=== PATIENT | female | born 1960 | race Caucasian/White ===

== ENCOUNTER → 2019-07-17 | Outpatient (CLI) | payer BC ==
[~2019-07-17] MED LIST: CYCL10 MT; ESTR.625; HYDACE7.5; HYDR1TAB94 PO; MERIDIA; ONDA4ODT MM; OXYACE5T PO
== END | disposition home or self-care (01) ==
LOC: PLD 13:51 → LAB SHORT 13:51
DX: D22.5 Melanocytic nevi of trunk (principal); L57.0 Actinic keratosis
CPT/HCPCS: 88305

== ENCOUNTER 2023-05-25 07:52 | Day surgery (SDC) | payer BC ==
[~2023-05-25] VITALS: Ht 160 cm; Wt 81.1 kg
--- NOTE | 2023-05-25 08:32 | NUR ---
05/25/23 0832 SINDHU RENO CALL LIGHT WITHIN REACH
[2023-05-25 11:34] VITALS: BP 117/70
--- NOTE | 2023-05-25 11:35 | NUR ---
05/25/23 1135 Alisson Edwards IVL.
== END 2023-05-25 10:08 | disposition home or self-care (01) ==
LOC: ORSCSDS 07:52
PROVIDERS: Surgery
PROC: 0DBN8ZX Excision of Sigmoid Colon, Via Natural or Artificial Opening Endoscopic, Diagnostic (ICD-10-PCS; principal; 2023-05-25 09:15)
DX: Z12.11 Encounter for screening for malignant neoplasm of colon (principal); K63.5 Polyp of colon; Z79.899 Other long term (current) drug therapy
CPT/HCPCS: 88305; J2704; J7120